=== PATIENT | female | born 1955 | race Caucasian/White ===

== ENCOUNTER → 2017-06-22 | Outpatient (CLI) | payer OTHER ==
--- NOTE | 2017-06-22 14:02 | RADIOLOGY REPORT PS360 ---
DIG MAMM-DX UNI-RT W/CAD COMPARISON: 08 21 16, 09/23/2016 INDICATION: Follow-up biopsy ORDERING PHYSICIAN: CLAUDIA PRATT PATIENT AGE: 61 years TECHNIQUE: Standard images performed along with mag views FINDINGS: Previously noted calcifications in the medial aspect of the left breast are no longer apparent. A stainless steel clip is present in the biopsy bed within the 2:00 region of the left breast. There is some asymmetric density in the cerebellum be related to postbiopsy changes. No malignant appearing mass or malignant appearing microcalcification. IMPRESSION: Post biopsy changes, calcifications in the medial left breast no longer apparent BI-RADS CATEGORY: 2_Benign RECOMMENDED FOLLOWUP: Screening mammogram of both breasts in July 2017 (A letter has been sent to the patient regarding results of the study.)
== END ==
LOC: RAD 13:00
DX: R92.8 Other abnormal and inconclusive findings on diagnostic imaging of breast (principal)
CPT/HCPCS: G0206-RT